=== PATIENT | male | born 1935 | race Caucasian/White ===

== ENCOUNTER → 2016-03-28 | Outpatient (CLI) | payer OTHER, MEDICARE ==
[~2016-03-28] MED LIST: ALBU8I INH; ASPI81TA45 PO; BECL80AE3 INH; LORA10TA PO; LOSA50 PO; TRIA1SPR6 EACH NARE
[2016-03-28 07:43] LABS: HEMATOCRIT 39.5 % (39.0-51.0); MEAN CELL VOLUME 82.1 FL (80.0-100.0); MEAN CORPUSCULAR HEMOGLOBIN 27.6 PG (27.0-34.0); MEAN CORPUSCULAR HGB CONC 33.6 % (32.0-36.0); PLATELET COUNT 208 TH/MM3 (150-450); RED BLOOD COUNT 4.81 MIL/MM3 (4.50-5.90); RED CELL DISTRIBUTION WIDTH 13.7 % (11.6-17.2); REVIEW FLAG FINAL; WHITE BLOOD COUNT 9.5 TH/MM3 (4.0-11.0)
[2016-03-28 08:15] LABS: ALKALINE PHOSPHATASE 89 U/L (45-117); ALT (GPT) 21 U/L (12-78); ANION GAP 9 MEQ/L (5-15); AST (GOT) 17 U/L (15-37); BICARBONATE 27.8 MEQ/L (21.0-32.0); BLOOD UREA NITROGEN 26 MG/DL (7-18); CHLORIDE 107 MEQ/L (98-107); GLOMERULAR FILTRATION RATE 35 ML/MIN (>89); GLUCOSE,FASTING 95 MG/DL (74-99); HDL CHOLESTEROL 44.8 MG/DL (40.0-60.0); LDL CHOLESTEROL 166 MG/DL (0-99); POTASSIUM 4.4 MEQ/L (3.5-5.1); SODIUM (NA) 144 MEQ/L (136-145); TOTAL BILIRUBIN ADULT 0.5 MG/DL (0.2-1.0)
== END ==
LOC: CLAB 07:16
PROVIDERS: ATTEND Family Medicine
DX: E78.5 Hyperlipidemia, unspecified (principal); J45.909 Unspecified asthma, uncomplicated; I12.9 Hypertensive chronic kidney disease with stage 1 through stage 4 chronic kidney disease, or unspecified chronic kidney disease; N18.3 Chronic kidney disease, stage 3 (moderate)
CPT/HCPCS: 36415; 80053; 80061; 84443; 85027

== ENCOUNTER → 2016-07-28 | Outpatient (CLI) | payer OTHER, MEDICARE ==
[2016-07-28 07:41] LABS: HEMATOCRIT 40.8 % (39.0-51.0); MEAN CELL VOLUME 82.4 FL (80.0-100.0); MEAN CORPUSCULAR HEMOGLOBIN 27.1 PG (27.0-34.0); MEAN CORPUSCULAR HGB CONC 32.9 % (32.0-36.0); PLATELET COUNT 180 TH/MM3 (150-450); RED BLOOD COUNT 4.94 MIL/MM3 (4.50-5.90); RED CELL DISTRIBUTION WIDTH 13.6 % (11.6-17.2); REVIEW FLAG FINAL; WHITE BLOOD COUNT 10.3 TH/MM3 (4.0-11.0)
[2016-07-28 08:17] LABS: ANION GAP 6 MEQ/L (5-15); AST (GOT) 14 U/L (15-37); BICARBONATE 27.8 MEQ/L (21.0-32.0); BLOOD UREA NITROGEN 20 MG/DL (7-18); CHLORIDE 109 MEQ/L (98-107); GLOMERULAR FILTRATION RATE 38 ML/MIN (>89); GLUCOSE,FASTING 89 MG/DL (74-99); POTASSIUM 4.3 MEQ/L (3.5-5.1); SODIUM (NA) 143 MEQ/L (136-145)
[2016-07-28 08:28] LABS: ALKALINE PHOSPHATASE 86 U/L (45-117); ALT (GPT) 23 U/L (12-78); HDL CHOLESTEROL 35.2 MG/DL (40.0-60.0); LDL CHOLESTEROL 158 MG/DL (0-99); TOTAL BILIRUBIN ADULT 0.5 MG/DL (0.2-1.0)
== END ==
LOC: CLAB 07:13
PROVIDERS: ATTEND Family Medicine
DX: I12.9 Hypertensive chronic kidney disease with stage 1 through stage 4 chronic kidney disease, or unspecified chronic kidney disease (principal); N18.3 Chronic kidney disease, stage 3 (moderate); J45.909 Unspecified asthma, uncomplicated; E78.5 Hyperlipidemia, unspecified; Z12.5 Encounter for screening for malignant neoplasm of prostate
CPT/HCPCS: 36415; 80053; 80061; 84153; 84443; 85027

== ENCOUNTER → 2016-12-06 | Outpatient (CLI) | payer OTHER, MEDICARE ==
[2016-12-06 08:06] LABS: HEMATOCRIT 40.7 % (39.0-51.0); MEAN CELL VOLUME 84.2 FL (80.0-100.0); MEAN CORPUSCULAR HEMOGLOBIN 27.7 PG (27.0-34.0); MEAN CORPUSCULAR HGB CONC 32.9 % (32.0-36.0); PLATELET COUNT 216 TH/MM3 (150-450); RED BLOOD COUNT 4.84 MIL/MM3 (4.50-5.90); RED CELL DISTRIBUTION WIDTH 13.4 % (11.6-17.2); REVIEW FLAG FINAL; WHITE BLOOD COUNT 10.2 TH/MM3 (4.0-11.0)
[2016-12-06 08:14] LABS: ALT (GPT) 20 U/L (12-78); ANION GAP 5 MEQ/L (5-15); AST (GOT) 16 U/L (15-37); BICARBONATE 28.7 MEQ/L (21.0-32.0); BLOOD UREA NITROGEN 20 MG/DL (7-18); CHLORIDE 109 MEQ/L (98-107); GLOMERULAR FILTRATION RATE 37 ML/MIN (>89); GLUCOSE,FASTING 85 MG/DL (74-99); POTASSIUM 4.5 MEQ/L (3.5-5.1); SODIUM (NA) 143 MEQ/L (136-145)
[2016-12-06 08:24] LABS: ALKALINE PHOSPHATASE 96 U/L (45-117); HDL CHOLESTEROL 38.5 MG/DL (40.0-60.0); LDL CHOLESTEROL 166 MG/DL (0-99); TOTAL BILIRUBIN ADULT 0.5 MG/DL (0.2-1.0)
== END ==
LOC: CLAB 07:24
PROVIDERS: ATTEND Family Medicine
DX: I10 Essential (primary) hypertension (principal); J45.909 Unspecified asthma, uncomplicated; E78.5 Hyperlipidemia, unspecified; N18.3 Chronic kidney disease, stage 3 (moderate)
CPT/HCPCS: 36415; 80053; 80061; 84443; 85027

== ENCOUNTER → 2017-03-27 | Outpatient (CLI) | payer MEDICARE ==
[2017-03-27 09:57] LABS: HEMATOCRIT 39.9 % (39.0-51.0); HEMOGLOBIN 13.5 GM/DL (13.0-17.0); MEAN CELL VOLUME 81.8 FL (80.0-100.0); MEAN CORPUSCULAR HEMOGLOBIN 27.6 PG (27.0-34.0); MEAN CORPUSCULAR HGB CONC 33.8 % (32.0-36.0); MEAN PLATELET VOLUME 8.5 FL (7.0-11.0); PLATELET COUNT 220 TH/MM3 (150-450); RED BLOOD COUNT 4.88 MIL/MM3 (4.50-5.90); RED CELL DISTRIBUTION WIDTH 13.8 % (11.6-17.2); WHITE BLOOD COUNT 8.6 TH/MM3 (4.0-11.0)
[2017-03-27 10:19] LABS: ALBUMIN 3.7 GM/DL (3.4-5.0); AST (GOT) 19 U/L (15-37); BICARBONATE 26.2 MEQ/L (21.0-32.0); BLOOD UREA NITROGEN 21 MG/DL (7-18); CALCIUM 9.1 MG/DL (8.5-10.1); CHLORIDE 108 MEQ/L (98-107); CREATININE 1.86 MG/DL (0.60-1.30); GLOMERULAR FILTRATION RATE 35 ML/MIN (>89); GLUCOSE,FASTING 93 MG/DL (74-99); SODIUM (NA) 140 MEQ/L (136-145)
[2017-03-27 10:20] LABS: ALT (GPT) 23 U/L (12-78); CHOLESTEROL 206 MG/DL (120-200)
[2017-03-27 10:29] LABS: ALKALINE PHOSPHATASE 100 U/L (45-117); CHOLESTEROL/ HDL RATIO 5.91 RATIO; HDL CHOLESTEROL 34.8 MG/DL (40.0-60.0); LDL CHOLESTEROL 141 MG/DL (0-99); TOTAL BILIRUBIN ADULT 0.6 MG/DL (0.2-1.0); TOTAL PROTEIN 7.7 GM/DL (6.4-8.2); TRIGLYCERIDES 150 MG/DL (42-150)
== END ==
LOC: CLAB 09:15
PROVIDERS: ATTEND Family Medicine
DX: I12.9 Hypertensive chronic kidney disease with stage 1 through stage 4 chronic kidney disease, or unspecified chronic kidney disease (principal); N18.3 Chronic kidney disease, stage 3 (moderate); J45.909 Unspecified asthma, uncomplicated; E78.5 Hyperlipidemia, unspecified; Z12.5 Encounter for screening for malignant neoplasm of prostate
CPT/HCPCS: 36415; 80053; 80061; 84153; 84443; 85027

== ENCOUNTER → 2017-08-08 | Outpatient (CLI) | payer MEDICARE ==
[2017-08-08 09:40] LABS: AUTOMATED NEUTROPHIL # 3.2 TH/MM3 (1.8-7.7); BASOPHIL % 0.6 % (0.0-2.0); EOSINOPHIL # 0.6 TH/MM3 (0-0.4); EOSINOPHIL % 6.9 % (0.0-4.0); HEMATOCRIT 39.2 % (39.0-51.0); HEMOGLOBIN 12.8 GM/DL (13.0-17.0); LYMPH % 47.3 % (9.0-44.0); LYMPHOCYTE # 4.1 TH/MM3 (1.0-4.8); MEAN CELL VOLUME 83.4 FL (80.0-100.0); MEAN CORPUSCULAR HEMOGLOBIN 27.3 PG (27.0-34.0); MEAN CORPUSCULAR HGB CONC 32.7 % (32.0-36.0); MEAN PLATELET VOLUME 8.5 FL (7.0-11.0); MONO % 8.2 % (0.0-8.0); MONOCYTE # 0.7 TH/MM3 (0-0.9); PLATELET COUNT 203 TH/MM3 (150-450); RED CELL DISTRIBUTION WIDTH 13.6 % (11.6-17.2); WHITE BLOOD COUNT 8.7 TH/MM3 (4.0-11.0)
[2017-08-08 10:05] LABS: ALBUMIN 3.7 GM/DL (3.4-5.0); AST (GOT) 22 U/L (15-37); BICARBONATE 20.9 MEQ/L (21.0-32.0); BLOOD UREA NITROGEN 27 MG/DL (7-18); CALCIUM 8.6 MG/DL (8.5-10.1); CHLORIDE 114 MEQ/L (98-107); CREATININE 1.89 MG/DL (0.60-1.30); GLOMERULAR FILTRATION RATE 34 ML/MIN (>89); GLUCOSE,FASTING 86 MG/DL (74-99); SODIUM (NA) 144 MEQ/L (136-145)
[2017-08-08 10:06] LABS: ALT (GPT) 23 U/L (12-78); CHOLESTEROL 163 MG/DL (120-200)
[2017-08-08 10:16] LABS: ALKALINE PHOSPHATASE 101 U/L (45-117); HDL CHOLESTEROL 37.9 MG/DL (40.0-60.0); LDL CHOLESTEROL 105 MG/DL (0-99); TOTAL BILIRUBIN ADULT 0.5 MG/DL (0.2-1.0); TOTAL PROTEIN 7.3 GM/DL (6.4-8.2); TRIGLYCERIDES 101 MG/DL (42-150)
== END ==
LOC: CLAB 09:21
PROVIDERS: ATTEND Family Medicine
DX: I12.9 Hypertensive chronic kidney disease with stage 1 through stage 4 chronic kidney disease, or unspecified chronic kidney disease (principal); N18.3 Chronic kidney disease, stage 3 (moderate); E78.5 Hyperlipidemia, unspecified
CPT/HCPCS: 36415; 80053; 80061; 84443; 85025

== ENCOUNTER 2018-02-22 09:47 | Observation (INO) ==
[2018-02-22] MEDS ORDERED: Sod Chloride 0.9% Inj 1,000 ML IV.SIG ONE (10:22)
[2018-02-22] MEDS ORDERED: Morphine Inj 4 MG/ML Vial IV.PUSH ONE (10:22)
[2018-02-22] MEDS ORDERED: Sodium Chlor 0.9% Inj 500 ML IV.SIG ONE (10:23)
[2018-02-22 10:59] LABS: Baso % (Auto) 0.5 % (0.0-2.0); Eos # (Auto) 0.2 th/mm3 (0.0-0.4); Eos % (Auto) 1.9 % (0.0-4.0); Hemoglobin 13.6 gm/dL (13.0-17.0); Lymph # (Auto) 3.2 th/mm3 (1.0-4.8); Lymph % (Auto) 39.1 % (9.0-44.0); Mean Corpuscular HGB Conc 34.8 % (32.0-36.0); Mean Corpuscular Hemoglobin 28.6 pg (27.0-34.0); Mean Corpuscular Volume 82.2 fL (80.0-100.0); Mean Platelet Volume 9.3 fL (7.0-11.0); Mono # (Auto) 0.8 th/mm3 (0.0-0.9); Mono % (Auto) 9.6 % (0.0-8.0); Neut % (Auto) 48.9 % (16.0-70.0); Platelet Count 218 th/mm3 (150-450); Red Blood Count 4.74 mil/mm3 (4.50-5.90); Red Cell Distribution Width 13.7 % (11.6-17.2); White Blood Count 8.3 th/mm3 (4.0-11.0)
--- NOTE | 2018-02-22 11:04 | ED ---
HPI General Chief complaint: Abdominal Pain Stated complaint: Back/Stomach/Neck Pain Complaint Time Seen by Provider: 02/22/18 10:12 Source: patient, RN notes reviewed and old records reviewed Mode of arrival: ambulatory History of Present Illness HPI narrative: 82yM presenting with abdominal pain. The patient has been having RUQ abdominal pain for the past several weeks, was sent for a CT abd/ pelvis at [facility] [place] and was found to have cholelithiasis. He was then sent for a HIDA scan on 02/19 (also at [facility]) but was unable to complete the study due to pain. He was supposed to see his GI doctor today but was unable to tolerate pain so he came to the ED. Admits to nausea, decreased PO intake, and unintentional weight loss. Denies fever, chest pain, vomiting, diarrhea, or dysuria. GI is Dr. Colvin. Related Data Home Medications Medication Instructions Recorded Confirmed albuterol sulfate [ProAir HFA] 1 puff INHALATION Q4-6H PRN 02/22/18 02/22/18 amlodipine 5 mg PO DAILY 02/22/18 02/22/18 losartan 50 mg PO DAILY 02/22/18 02/22/18 Allergies Allergy/AdvReac Type Severity Reaction Status Date / Time No Known Allergies Allergy Verified 02/22/18 10:07 Review of Systems ROS: all other systems reviewed are negative Constitutional Denies fever(s) Cardiovascular Denies chest pain Respiratory Denies cough Gastrointestinal Reports nausea Genitourinary Denies dysuria Musculoskeletal Comments: (+) right flank pain Neurologic Denies confusion Psychiatric Denies confusion [facility] Medical History Medical History Asthma (Acute) Cholecystitis (Acute) HTN (hypertension) (Acute) Social History Social History Substance History: No History of Abuse Smoking Status: Never smoker How Often Do You Have a Drink Containing Alcohol: Never Recent Travel in [facility] within the Last 8 Weeks: No Recent Out of Country Travel within the Last 8 Weeks: No Immunization History Tetanus Immunization: Unsure Exam Const Other: Appears uncomfortable HENMT Face and sinus: normal facial exam Eyes General: appearance normal, both eyes and all related structures Chest Chest: normal inspection of the chest Resp Effort & Inspection: normal respiratory effort Auscultation: no rhonchi and no wheezes Cardio Rate: regular rate Rhythm: regular rhythm GI Other: Soft, mild RUQ tenderness, negative Rodarte's sign, no CVA tenderness, no guarding or rebound, non-distended Skin General: no rashes or lesions noted Neuro General: alert and awake Psych Affect: normal affect Course Consultations Consultation #1: Patient found to have dehydration in the setting of chronic kidney disease, inability to tolerate PO, and intractable pain. I spoke with Dr. Noguera of general surgery, who agrees that patient will need his gallbladder removed non-emergently (urgently, tomorrow AM). He will see the patient this evening. Time: 12:07 Initial Documented Vital Signs Temperature 97.4 F L 02/22/18 09:56 Pulse Rate 75 02/22/18 09:56 Respiratory Rate 17 02/22/18 09:56 Blood Pressure 138/75 02/22/18 09:56 Pulse Oximetry 96 02/22/18 09:56 Last Documented Vital Signs Temperature 97.4 F L 02/22/18 09:56 Pulse Rate 75 02/22/18 09:56 Respiratory Rate 17 02/22/18 09:56 Blood Pressure 138/75 02/22/18 09:56 Pulse Oximetry 96 02/22/18 09:56 Medical Decision Making [facility] Narrative Medical decision making narrative: Assessment: 82yM presenting with abdominal pain Plan: Pain control, IV fluids Labs RUQ US Addendum: Patient requires cholecystectomy tomorrow, IV hydration overnight, re- evaluation of labs in AM. Case discussed with Dr. Ramsey of [facility]. Patient and his understand and agree with plan. Medical Screen Exam Complete: Yes Emergency Medical Condition: Yes Differential Diagnosis Differential Diagnosis: Differential diagnosis includes, but is not limited to: cholelithiasis, choledocholithiasis, cholangitis, pancreatitis Medical Records Medical records reviewed: Yes I reviewed the patient's medical records. Lab Data Lab results reviewed: Yes I reviewed the patient's lab results. Result diagrams: 02/22/18 10:50 02/22/18 10:50 Lab Results 02/22/18 02/22/18 02/22/18 Range/Units 10:50 10:50 10:50 WBC 8.3 (4.0-11.0) th/mm3 RBC 4.74 (4.50-5.90) mil/mm3 Hgb 13.6 (13.0-17.0) gm/dL Hct 39.0 (39.0-51.0) % MCV 82.2 (80.0-100.0) fL MCH 28.6 (27.0-34.0) pg MCHC 34.8 (32.0-36.0) % RDW 13.7 (11.6-17.2) % Plt Count 218 (150-450) th/mm3 MPV 9.3 (7.0-11.0) fL Neut % (Auto) 48.9 (16.0-70.0) % Lymph % (Auto) 39.1 (9.0-44.0) % Graves % (Auto) 9.6 H (0.0-8.0) % Eos % (Auto) 1.9 (0.0-4.0) % Baso % (Auto) 0.5 (0.0-2.0) % Neut # (Auto) 4.0 (1.8-7.7) th/mm3 Lymph # (Auto) 3.2 (1.0-4.8) th/mm3 Graves # (Auto) 0.8 (0.0-0.9) th/mm3 Eos # (Auto) 0.2 (0.0-0.4) th/mm3 Baso # (Auto) 0.0 (0.0-0.2) th/mm3 WBC Differential . Differential Comment Auto diff final Sodium 129 L (136-145) meq/L Potassium 4.1 (3.5-5.1) meq/L Chloride 96 L (98-107) meq/L Carbon Dioxide 24.6 (21.0-32.0) meq/L Anion Gap 8 (5-15) meq/L BUN 13 (7-18) mg/dL Creatinine 1.49 H (0.60-1.30) mg/dL Estimated GFR 45 L (>89) mL/min Random Glucose 102 (74-106) mg/dL Calcium 8.6 (8.5-10.1) mg/dL Magnesium 2.1 (1.5-2.5) mg/dL Total Bilirubin 1.0 (0.2-1.0) mg/dL AST 23 (15-37) U/L ALT 27 (12-78) U/L Alkaline Phosphatase 94 (45-117) U/L Total Protein 7.3 (6.4-8.2) g/dL Albumin 3.8 (3.4-5.0) g/dL Lipase 116 (73-393) U/L Blood Type O Positive Blood Type Recheck Required Antibody Screen Negative Imaging Data Radiologist's impression: Gallbladder Ultrasound 02/22/18 10:22 CONCLUSION: 1. The gallbladder is contracted containing multiple stones. However, there are no findings to suggest gallbladder obstruction or inflammation. 2. Remainder of the examination demonstrates no definite abnormality. Discharge Plan Discharge Disposition Patient Disposition: ED Admit(ED Internal Use Only) Discharge Condition Condition: Stable Discharge Order Discharge Orders: ED Use Only Admit Order (Routine); Ordered 02/22/18 Ordered By: Betsy Christie Discharge Details Diagnosis: Acute dehydration, Acute hyponatremia, Cholelithiasis Physicians Team ED Provider: Betsy Christie Primary Care Provider: Issa Navarrete Attending Provider: Yomaira Ramsey Other Providers: Tolu Noguera Status ED Status: Admitted Patient
[2018-02-22 11:15] LABS: Alanine Aminotransferase 27 U/L (12-78); Albumin 3.8 g/dL (3.4-5.0); Anion Gap 8 meq/L (5-15); Aspartate Aminotransferase 23 U/L (15-37); Blood Urea Nitrogen 13 mg/dL (7-18); Calcium 8.6 mg/dL (8.5-10.1); Carbon Dioxide 24.6 meq/L (21.0-32.0); Chloride 96 meq/L (98-107); Glomerular Filtration Rate 45 mL/min (>89); Glucose,Random 102 mg/dL (74-106); Lipase 116 U/L (73-393); Magnesium 2.1 mg/dL (1.5-2.5); Potassium 4.1 meq/L (3.5-5.1); Sodium 129 meq/L (136-145)
[2018-02-22 11:17] LABS: Alkaline Phosphatase 94 U/L (45-117); Total Protein 7.3 g/dL (6.4-8.2)
--- NOTE | 2018-02-22 11:22 | US ---
EXAM DATE: 02/22/2018 11:17 AM EST AGE/SEX: 82 years / Male INDICATIONS: Right upper quadrant abdominal pain. CLINICAL DATA: This is the patient's initial encounter. Patient reports that signs and symptoms have been present for 2 months and indicates a pain score of 9/10. MEDICAL/SURGICAL HISTORY: Asthma. Hypertension. Cholecystitis. . COMPARISON: POI, CT ABDOMEN AND PELVIS W/O CONTRAST, 02/12/2018. . MEASUREMENTS: Liver:__ 14.7 cm. Common Bile Duct:__ 3mm. FINDINGS: Liver: Normal echogenicity without a focal lesion. There is no bile duct dilatation. Portal Vein: Hepatopedal flow seen in portal vein. Common Duct: No intraluminal mass or stone visualized. Gallbladder: Gallbladder is contracted containing innumerable stones. No pericholecystic fluid is pr esent and sonographic Rodarte sign is negative. Pancreas: No definite pancreas abnormality is identified. Right Kidney: Normal echogenicity and cortical thickness. No mass or hydronephrosis. Other: None. CONCLUSION: 1. The gallbladder is contracted containing multiple stones. However, there are no findings to sugge st gallbladder obstruction or inflammation. 2. Remainder of the examination demonstrates no definite abnormality. Electronically signed by: Brendan Reynolds MD Board Certified Radiologist 02/22/2018 11:21 AM EST
[2018-02-22] MEDS ORDERED: Bisacodyl 10 MG Supp RECTAL PRN (11:59)
[2018-02-22] MEDS ORDERED: Acetaminophen 325 MG Tablet PO PRN (11:59)
--- NOTE | 2018-02-22 12:57 | P.HPIM ---
History of Present Illness Service: Hospitalist Primary Care Physician: Issa Navarrete MD Chief Complaint: Right sided abdominal pain. History of Present Illness: Mr. Richmond is a pleasant 82-year-old male with a history of hypertension who presents to the emergency department on 02/22/2018 due to right-sided abdominal pain. In November 2017, patient was driving back to [place] from [place] when he started noticing right-sided abdominal pain. Over the following months, his abdominal pain Getting worse and also associated with food intake. He did not have any fever or chills. However, due to abdominal pain when he eats, he has lost 10 lbs or so. He denies any chest pain , shortness of breath, fever or chills. He denies any changes in bowel or bladder habits. Past medical history: Chronic kidney disease stage III, hypertension Past surgical history: Mastoid surgery when he was 6 years old. Nasal polyp surgery. Social history: Lifelong non-smoker and nondrinker. Family history: Mother had dementia. Inpatient Certification Inpatient Certification: I certify that the inpatient services were ordered in accordance with Medicare regulations governing the order. This includes certification that hospital inpatient services are reasonable and necessary and in the case of services not specified as inpatient-only under 42 CFR 419.22(n), that they are appropriately provided as inpatient services in accordance to with the 2-midnight benchmark under 43 CFR 412.3(e) Review of Systems Review of Systems: all other systems reviewed are negative [facility] Medical History Medical History Asthma (Acute) Cholecystitis (Acute) HTN (hypertension) (Acute) Social History Social History Substance History: No History of Abuse Smoking Status: Never smoker How Often Do You Have a Drink Containing Alcohol: Never Recent Travel in [place] within the Last 8 Weeks: No Recent Out of Country Travel within the Last 8 Weeks: No Immunization History Tetanus Immunization: Unsure Medications and Allergies Allergies Allergy/AdvReac Type Severity Reaction Status Date / Time No Known Allergies Allergy Verified 02/22/18 10:07 Home Medications Medication Instructions Recorded Confirmed Type albuterol sulfate [ProAir HFA] 1 puff INHALATION Q4-6H PRN 02/22/18 02/22/18 History amlodipine 5 mg PO DAILY 02/22/18 02/22/18 History losartan 50 mg PO DAILY 02/22/18 02/22/18 History Active Medications: Active Medications Acetaminophen (Tylenol) 650 mg PO Q4H PRN PRN Reason: Headache, fever, pain 1-4 Al Hydroxide/Mg Hydroxide (Milk Of Magnesia Liq) 30 ml PO Q12H PRN PRN Reason: Mild Constipation Amlodipine Besylate (Norvasc) 5 mg PO DAILY ANA Bisacodyl (Dulcolax Supp) 10 mg RECTAL DAILY PRN PRN Reason: SEVERE CONSITIPATION Ceftriaxone Sodium 2,000 mg/ (Sodium Chloride) 100 mls @ 200 mls/hr IV.SIG Q24H ANA Lactulose (Lactulose Liq) 30 ml PO DAILY PRN PRN Reason: SEVERE CONSITIPATION Losartan Potassium (Cozaar) 50 mg PO DAILY ANA Morphine Sulfate (Morphine Inj) 2 mg IV.PUSH Q4H PRN PRN Reason: pain 5-10 Ondansetron HCl (Zofran Inj) 4 mg IV.PUSH Q6H PRN PRN Reason: NAUSEA OR VOMITING Sennosides (Senokot) 17.2 mg PO Q12H PRN PRN Reason: Moderate Constipation Sodium Chloride (Ns Flush) 2 ml IV.FLUSH BID ANA Sodium Chloride (Ns Flush) 2 ml IV.FLUSH UNSCH PRN PRN Reason: FLUSH AFTER USING IV ACCESS Physical Exam Vital signs: Last Vital Signs Temp 97.4 F L 02/22/18 09:56 Pulse 75 02/22/18 09:56 Resp 17 02/22/18 09:56 BP 138/75 02/22/18 09:56 Pulse Ox 96 02/22/18 09:56 Intake & Output 02/20/18 02/21/18 02/22/18 02/23/18 06:59 06:59 06:59 06:59 Intake Total 1500 / 1500 Balance 1500 / 1500 Weight 74.389 kg Narrative: GENERAL: This is a well-nourished, well-developed patient, in no apparent distress. SKIN: No rashes, ecchymoses or lesions. Warm and dry. HEAD: Atraumatic. Normocephalic. No temporal or scalp tenderness. EYES: Pupils equal round and reactive. No injection or drainage. ENT: Nose without bleeding, purulent drainage or septal hematoma. Airway patent. NECK: Trachea midline. No lymphadenopathy. Supple, nontender, no meningeal signs. CARDIOVASCULAR: Regular rate and rhythm without murmurs, gallops, or rubs. No JVD. RESPIRATORY: Clear to auscultation. Breath sounds equal bilaterally. No wheezes , rales, or rhonchi. GASTROINTESTINAL: Abdomen soft, non-tender, nondistended. No guarding. MUSCULOSKELETAL: Extremities without clubbing, cyanosis, or edema. NEUROLOGICAL: Awake and alert. Cranial nerves II through XII intact. No focal neurological deficits. Normal speech. Results Labs CBC & Chem 7: 02/22/18 10:50 02/22/18 10:50 Imaging Impressions Gallbladder Ultrasound 02/22/18 10:22 CONCLUSION: 1. The gallbladder is contracted containing multiple stones. However, there are no findings to suggest gallbladder obstruction or inflammation. 2. Remainder of the examination demonstrates no definite abnormality. Caprini VTE Risk Assessment Caprini VTE Risk Assessment: No/Low Risk (score <= 1) Caprini Risk Assessment Model: Point Value = 1 Point Value = 2 Point Value = 3 Point Value = 5 Age 41-60 Minor surgery BMI > 25 kg/m2 Swollen legs Varicose veins or History of unexplained or recurrent spontaneous Oral contraceptives or hormone replacement Sepsis (< 1 month) Serious lung disease, including pneumonia (< 1 month) Abnormal pulmonary function Acute myocardial infarction Congestive heart failure (< 1 month) History of inflammatory bowel disease Medical patient at bed rest Age 61-74 Arthroscopic surgery Major open surgery (> 45 min) Laparoscopic surgery (> 45 min) Malignancy Confined to bed (> 72 hours) Immobilizing plaster cast Central venous access Age >= 75 History of VTE Family history of VTE Factor V Leiden Prothrombin 20331C Lupus anticoagulant Anticardiolipin antibodies Elevated serum homocysteine Heparin-induced thrombocytopenia Other congenital or acquired thrombophilia Stroke (< 1 month) Elective arthroplasty Hip, pelvis, or leg fracture Acute spinal cord injury (< 1 month) Prophylaxis Regimen: Total Risk Factor Score Risk Level Prophylaxis Regimen 0-1 Low Early ambulation 2 Moderate Order ONE of the following: *Sequential Compression Device (SCD) *Heparin 5000 units SQ BID 3-4 Higher Order ONE of the following medications: *Heparin 5000 units SQ TID *Enoxaparin/Lovenox 40 mg SQ daily (WT < 150 kg, CrCl > 30 mL/min) *Enoxaparin/Lovenox 30 mg SQ daily (WT < 150 kg, CrCl > 10-29 mL/min) *Enoxaparin/Lovenox 30 mg SQ BID (WT < 150 kg, CrCl > 30 mL/min) AND/OR *Sequential Compression Device (SCD) 5 or more Highest Order ONE of the following medications: *Heparin 5000 units SQ TID (Preferred with Epidurals) *Enoxaparin/Lovenox 40 mg SQ daily (WT < 150 kg, CrCl > 30 mL/min) *Enoxaparin/Lovenox 30 mg SQ daily (WT < 150 kg, CrCl > 10-29 mL/min) *Enoxaparin/Lovenox 30 mg SQ BID (WT < 150 kg, CrCl > 30 mL/min) AND *Sequential Compression Device (SCD) Assessment and Plan Plan Mr. Richmond is a pleasant 82-year-old male with a history of hypertension, CKD stage III who presents to the emergency department on 02/22/2018 due to abdominal pain that started in November 2017. His abdominal pain is worse with eating. Imaging studies indicate gallbladder stones. Patient did try to undergo HIDA scan in the outpatient setting but could not tolerate due to pain. Acute symptomatic cholecystitis General surgery consulted. Likely surgery in the morning on 02/23/2018. Acetaminophen, morphine IV for pain management. Continue ceftriaxone 2 g every 24 hours. No antibiotics after surgery. Clear liquid diet for now and n.p.o. midnight. Hypertension Continue amlodipine as well as losartan. CKD stage III Creatinine 1.49 today which is somewhat better than his baseline. Estimated GFR 45. Full code. SCDs. Discharge plan: After surgery, patient likely can be discharged home on 2018 if cleared by surgery.
[2018-02-22 13:13] LABS: Bilirubin,Urine Negative (Negative); Clarity,Urine Clear (Clear); Color,Urine Yellow (Yellw/Straw); Glucose,Urine (UA) Negative (Negative); Leukocyte Esterase,Urine Negative (Negative); Nitrite,Urine Negative (Negative); Specific Gravity,Urine 1.006 (1.002-1.035)
--- NOTE | 2018-02-22 14:42 | P.CONGS ---
[facility] Gen Surgery Consult Note Consult date: 02/22/18 Reason for consult: gallstones Requesting physician: Betsy Christie Narrative: This is an 82 year old male with a past medical history of hypertension and stage 3 kidney disease. He reports epigastric and RIGHT upper quadrant pain that radiates to his back and up to his RIGHT shoulder. He reports he has lost about 20 pounds in the last 2 months. In December, he was seen Dr. Colvin's office by the PA who ordered a CT abdomen/pelvis which showed cholelithiasis. He was referred to our office and seen by Dr. Clayton Marquez. A HIDA scan was ordered but he was unable to complete the test due to chronic back pain. His RIGHT upper quadrant pain continues and he arrived to the ED for evaluation. An US of the gallbladder was done which shows cholelithiasis without any inflammatory changes. His WBC is normal. His LFTs are normal. A General Surgery consultation has been requested. Review of Systems All other systems reviewed negative except as stated in [facility] - History History Provided By: Patient - Medical History Medical History: Medical History (Last Updated 02/22/18 @ 14:38 by GEMINI Knutson) Asthma Cholecystitis HTN (hypertension) Nasal polyp Stage 3 chronic kidney disease - Surgical History Surgical History: Surgical History (Last Updated 02/22/18 @ 14:38 by GEMINI Knutson) Hx of tonsillectomy - Tobacco History Smoking Status: Never smoker - Alcohol History How Often Do You Have a Drink Containing Alcohol: Never - Substance Use History Substance History: No History of Abuse - Travel History Recent Travel in the [place] Within the Last 8 Weeks: No Recent Travel Out of the Country Within the Last 8 Weeks: No - Immunization History Tetanus Immunization: Unsure Medications and Allergies Allergies Allergy/AdvReac Type Severity Reaction Status Date / Time No Known Allergies Allergy Verified 02/22/18 10:07 Home Medications Medication Instructions Recorded Confirmed Type albuterol sulfate [ProAir HFA] 1 puff INHALATION Q4-6H PRN 02/22/18 02/22/18 History amlodipine 5 mg PO DAILY 02/22/18 02/22/18 History losartan 50 mg PO DAILY 02/22/18 02/22/18 History Active Medications: Active Medications Acetaminophen (Tylenol) 650 mg PO Q4H PRN PRN Reason: Headache, fever, pain 1-4 Al Hydroxide/Mg Hydroxide (Milk Of Magnesia Liq) 30 ml PO Q12H PRN PRN Reason: Mild Constipation Amlodipine Besylate (Norvasc) 5 mg PO DAILY [facility] Bisacodyl (Dulcolax Supp) 10 mg RECTAL DAILY PRN PRN Reason: SEVERE CONSITIPATION Ceftriaxone Sodium 2,000 mg/ (Sodium Chloride) 100 mls @ 200 mls/hr IV.SIG Q24H ANA Last Infusion: 02/22/18 14:08 Dose: Infused Lactulose (Lactulose Liq) 30 ml PO DAILY PRN PRN Reason: SEVERE CONSITIPATION Losartan Potassium (Cozaar) 50 mg PO DAILY [facility] Morphine Sulfate (Morphine Inj) 2 mg IV.PUSH Q4H PRN PRN Reason: pain 5-10 Ondansetron HCl (Zofran Inj) 4 mg IV.PUSH Q6H PRN PRN Reason: NAUSEA OR VOMITING Sennosides (Senokot) 17.2 mg PO Q12H PRN PRN Reason: Moderate Constipation Sodium Chloride (Ns Flush) 2 ml IV.FLUSH BID [facility] Sodium Chloride (Ns Flush) 2 ml IV.FLUSH UNSCH PRN PRN Reason: FLUSH AFTER USING IV ACCESS Exam Vital signs: Laboratory Results WBC 8.3 th/mm3 (4.0-11.0) 02/22/18 10:50 RBC 4.74 mil/mm3 (4.50-5.90) 02/22/18 10:50 Hgb 13.6 gm/dL (13.0-17.0) 02/22/18 10:50 Hct 39.0 % (39.0-51.0) 02/22/18 10:50 MCV 82.2 fL (80.0-100.0) 02/22/18 10:50 MCH 28.6 pg (27.0-34.0) 02/22/18 10:50 MCHC 34.8 % (32.0-36.0) 02/22/18 10:50 RDW 13.7 % (11.6-17.2) 02/22/18 10:50 Plt Count 218 th/mm3 (150-450) 02/22/18 10:50 MPV 9.3 fL (7.0-11.0) 02/22/18 10:50 Neut % (Auto) 48.9 % (16.0-70.0) 02/22/18 10:50 Lymph % (Auto) 39.1 % (9.0-44.0) 02/22/18 10:50 [place] % (Auto) 9.6 % (0.0-8.0) H 02/22/18 10:50 Eos % (Auto) 1.9 % (0.0-4.0) 02/22/18 10:50 Baso % (Auto) 0.5 % (0.0-2.0) 02/22/18 10:50 Neut # (Auto) 4.0 th/mm3 (1.8-7.7) 02/22/18 10:50 Lymph # (Auto) 3.2 th/mm3 (1.0-4.8) 02/22/18 10:50 [place] # (Auto) 0.8 th/mm3 (0.0-0.9) 02/22/18 10:50 Eos # (Auto) 0.2 th/mm3 (0.0-0.4) 02/22/18 10:50 Baso # (Auto) 0.0 th/mm3 (0.0-0.2) 02/22/18 10:50 WBC Differential . 02/22/18 10:50 Differential Comment Auto diff final 02/22/18 10:50 Sodium 129 meq/L (136-145) L 02/22/18 10:50 Potassium 4.1 meq/L (3.5-5.1) 02/22/18 10:50 Chloride 96 meq/L (98-107) L 02/22/18 10:50 Carbon Dioxide 24.6 meq/L (21.0-32.0) 02/22/18 10:50 Anion Gap 8 meq/L (5-15) 02/22/18 10:50 BUN 13 mg/dL (7-18) 02/22/18 10:50 Creatinine 1.49 mg/dL (0.60-1.30) H 02/22/18 10:50 Estimated GFR 45 mL/min (>89) L 02/22/18 10:50 Random Glucose 102 mg/dL (74-106) 02/22/18 10:50 Calcium 8.6 mg/dL (8.5-10.1) 02/22/18 10:50 Magnesium 2.1 mg/dL (1.5-2.5) 02/22/18 10:50 Total Bilirubin 1.0 mg/dL (0.2-1.0) 02/22/18 10:50 AST 23 U/L (15-37) 02/22/18 10:50 ALT 27 U/L (12-78) 02/22/18 10:50 Alkaline Phosphatase 94 U/L (45-117) 02/22/18 10:50 Total Protein 7.3 g/dL (6.4-8.2) 02/22/18 10:50 Albumin 3.8 g/dL (3.4-5.0) 02/22/18 10:50 Lipase 116 U/L (73-393) 02/22/18 10:50 Urine Color Yellow (Yellw/Straw) 02/22/18 12:19 Urine Clarity Clear (Clear) 02/22/18 12:19 Urine pH 6.0 (5.0-8.5) 02/22/18 12:19 Ur Specific [place] 1.006 (1.002-1.035) 02/22/18 12:19 Urine Protein Negative mg/dL (Neg-Trace) 02/22/18 12:19 Urine Glucose (UA) Negative mg/dL (Negative) 02/22/18 12:19 Urine Ketones Trace mg/dL (Negative) H 02/22/18 12:19 Urine Occult Blood Negative (Negative) 02/22/18 12:19 Urine Nitrate Negative (Negative) 02/22/18 12:19 Urine Bilirubin Negative (Negative) 02/22/18 12:19 Urine Urobilinogen Less than 2 mg/dL (Less than 2) 02/22/18 12:19 Ur Leukocyte Esterase Negative (Negative) 02/22/18 12:19 Urine RBC Less than 1 /hpf (0-3) 02/22/18 12:19 Urine WBC 1 /hpf (0-5) 02/22/18 12:19 Micro UA Comment Culture not ind 02/22/18 12:19 Ur Microscopic Review Not Reportable 02/22/18 12:19 Urine Culture Comments Culture not ind 02/22/18 12:19 Blood Type O Positive 02/22/18 10:50 Blood Type Recheck Required 02/22/18 10:50 Antibody Screen Negative 02/22/18 10:50 Impressions Gallbladder Ultrasound 02/22/18 10:22 CONCLUSION: 1. The gallbladder is contracted containing multiple stones. However, there are no findings to suggest gallbladder obstruction or inflammation. 2. Remainder of the examination demonstrates no definite abnormality. Narrative: GENERAL: Very pleasant 82 year old male resting in bed in no acute distress. SKIN: Warm and dry. HEAD: Atraumatic. Normocephalic. EYES: Pupils equal and round. No scleral icterus. No injection or drainage. ENT: No nasal bleeding or discharge. Mucous membranes pink and moist. NECK: Trachea midline. CARDIOVASCULAR: Regular rate and rhythm. RESPIRATORY: No accessory muscle use. Clear to auscultation. GASTROINTESTINAL: Abdomen soft, nondistended. Epigastric and RUQ tenderness with palpation. No visible scars or hernias. MUSCULOSKELETAL: Extremities without clubbing, cyanosis, or edema. No obvious deformities. NEUROLOGICAL: Awake and alert. No obvious cranial nerve deficits. Motor grossly within normal limits. Five out of 5 muscle strength in the arms and legs. Normal speech. PSYCHIATRIC: Appropriate mood and affect; insight and judgment normal. - Routine Abdominal Exam Present: soft Comments: Nontender, no masses appreciated Results - Labs 02/22/18 10:50 02/22/18 10:50 Laboratory Results - last 24 hr 02/22/18 02/22/18 02/22/18 10:50 10:50 10:50 WBC 8.3 RBC 4.74 Hgb 13.6 Hct 39.0 MCV 82.2 MCH 28.6 MCHC 34.8 RDW 13.7 Plt Count 218 MPV 9.3 Neut % (Auto) 48.9 Lymph % (Auto) 39.1 [place] % (Auto) 9.6 H Eos % (Auto) 1.9 Baso % (Auto) 0.5 Neut # (Auto) 4.0 Lymph # (Auto) 3.2 [place] # (Auto) 0.8 Eos # (Auto) 0.2 Baso # (Auto) 0.0 WBC Differential . Differential Comment Auto diff final Sodium 129 L Potassium 4.1 Chloride 96 L Carbon Dioxide 24.6 Anion Gap 8 BUN 13 Creatinine 1.49 H Estimated GFR 45 L Random Glucose 102 Calcium 8.6 Magnesium 2.1 Total Bilirubin 1.0 AST 23 ALT 27 Alkaline Phosphatase 94 Total Protein 7.3 Albumin 3.8 Lipase 116 Urine Color Urine Clarity Urine pH Ur Specific [place] Urine Protein Urine Glucose (UA) Urine Ketones Urine Occult Blood Urine Nitrate Urine Bilirubin Urine Urobilinogen Ur Leukocyte Esterase Urine RBC Urine WBC Micro UA Comment Ur Microscopic Review Urine Culture Comments Blood Type O Positive Blood Type Recheck Required Antibody Screen Negative 02/22/18 12:19 WBC RBC Hgb Hct MCV MCH MCHC RDW Plt Count MPV Neut % (Auto) Lymph % (Auto) [place] % (Auto) Eos % (Auto) Baso % (Auto) Neut # (Auto) Lymph # (Auto) [place] # (Auto) Eos # (Auto) Baso # (Auto) WBC Differential Differential Comment Sodium Potassium Chloride Carbon Dioxide Anion Gap BUN Creatinine Estimated GFR Random Glucose Calcium Magnesium Total Bilirubin AST ALT Alkaline Phosphatase Total Protein Albumin Lipase Urine Color Yellow Urine Clarity Clear Urine pH 6.0 Ur Specific [place] 1.006 Urine Protein Negative Urine Glucose (UA) Negative Urine Ketones Trace H Urine Occult Blood Negative Urine Nitrate Negative Urine Bilirubin Negative Urine Urobilinogen Less than 2 Ur Leukocyte Esterase Negative Urine RBC Less than 1 Urine WBC 1 Micro UA Comment Culture not ind Ur Microscopic Review Not Reportable Urine Culture Comments Culture not ind Blood Type Blood Type Recheck Antibody Screen - Imaging Imaging: ITS Impressions Gallbladder Ultrasound 02/22/18 10:22 CONCLUSION: 1. The gallbladder is contracted containing multiple stones. However, there are no findings to suggest gallbladder obstruction or inflammation. 2. Remainder of the examination demonstrates no definite abnormality. US - abdomen: report reviewed, image reviewed Assessment and Plan - Assessment (1) Symptomatic cholelithiasis Code(s): K80.20 - Calculus of gallbladder without cholecystitis without obstruction Status: Acute Plan: 82 year old male with symptomatic cholelithiasis -Will plan for laparoscopic cholecystectomy tomorrow -Discussed procedure including risks and benefits -Obtain consents -Clear liquids tonight; NPO after MN -IVF; Na 129 -Repeat labs tomorrow -Thank you for this consult; We will continue to follow I am concerned about his weight loss and the gallbladder stones do not really explain that. I have discussed that with the patient and his who was present at the bedside. Risks were discussed with the patient and his including but not limited to : Bleeding, infection, bile duct injury, bowel injury, possible need for postoperative endoscopy, drainage, or reoperation. I discussed remedies, consequences, alternatives, and convalescence; they vocalized understanding and agreed to proceed. The exam, history, and the medical decision-making described in the above note were completed with the assistance of the mid-level provider. I reviewed and agree with the findings presented. I attest that I had a [id number] encounter with the patient on the same day, and personally performed and documented my assessment and findings in the medical record. - Plan Code Status: Dr. Chuckie Sanchez and Mrs. Richmond
[2018-02-22] MEDS: Morphine Inj 4 MG/ML Vial IV.PUSH PRN ×2 (17:36→21:59)
[2018-02-22] MEDS: Sod Chloride 0.9% Inj 1,000 ML IV.CONT SCH (22:58)
[2018-02-23] MEDS ORDERED: Chlorhexidine Gluconate 2% 1 Pack (2 Cloths) TOPICAL ONE (02:29)
[2018-02-23] MEDS: amLODIPine 5 MG Tablet PO SCH (08:47)
[2018-02-23] MEDS: Sod Chloride 0.9% Inj 1,000 ML IV.CONT SCH ×2 (08:49→17:30)
[2018-02-23] MEDS: Morphine Inj 4 MG/ML Vial IV.PUSH PRN ×2 (09:23→17:27)
--- NOTE | 2018-02-23 09:40 | P.PNIM ---
Subjective Interval history: Follow-up visit acute cholecystitis. Patient seen and examined today. Reports he is doing well. States that he needs to get another morphine medication as his abdominal pain is increasing. Awaiting for nurse to provide the medication. Otherwise, states he is ready for his surgery at 2:30 PM. Denies pain and discomfort. Denies SOB/ dyspnea. Denies chest pain, palpitations, headaches, dizziness. Denies fevers, chills, n/v/d. Denies hematuria, dysuria. Physical Exam Vital signs: Vital Signs 02/22/18 09:56 02/22/18 16:00 02/22/18 17:38 Temperature 97.4 F L 99.5 F Pulse Rate 75 57 L Respiratory Rate 17 17 18 Blood Pressure 138/75 166/77 H Pulse Oximetry 96 98 02/22/18 20:00 02/22/18 22:01 02/23/18 00:00 Temperature 98.7 F 97.5 F L Pulse Rate 58 L 58 L Respiratory Rate 18 18 16 Blood Pressure 155/65 H 177/79 H Pulse Oximetry 98 97 Intake & Output 02/22/18 02/23/18 02/23/18 18:59 06:59 18:59 Intake Total 2220 / 2220 25 / 25 1000 / 1000 Balance 2220 / 2220 25 / 25 1000 / 1000 Weight 74.389 kg 74.7 kg Intake: IV 1600 / 1600 1000 / 1000 NS Inj 1,000 ML @ 100 mls/hr IV 1000 / 1000 .CONT .Q10H ANA Rx#:[id number] NS Inj 1,000 ML @ Wide Open IV. 1000 / 1000 SIG BOLUS ONE Rx#:[id number] NS Inj 500 ML @ Wide Open IV. 500 / 500 SIG BOLUS ONE Rx#:[id number] Rocephin Inj 2,000 MG In NS Inj 100 / 100 100 ML @ 200 mls/hr IV.SIG Q24H ANA Rx#:[id number] Oral 620 / 620 / Other: # Voids 1 4 Narrative: GENERAL: This is a pleasant, well-developed patient, in no apparent distress. SKIN: Warm and dry. HEENT: Normocephalic. Pupils equal round and reactive. Nose without bleeding. Airway patent. NECK: Trachea midline. CARDIOVASCULAR: Regular rate and rhythm without murmurs, gallops, or rubs. RESPIRATORY: Clear to auscultation. Breath sounds equal bilaterally. No wheezes , rales, or rhonchi. GASTROINTESTINAL: Abdomen soft, nondistended. Bowel Sounds normoactive. Mild tenderness to palpation MUSCULOSKELETAL: Extremities without clubbing, cyanosis, or edema. NEUROLOGICAL: Awake and alert. No focal neuro deficit. Moves all extremities. Normal speech. Results - Labs CBC & Chem 7: 02/22/18 10:50 02/22/18 10:50 Laboratory Results - last 24 hr 02/22/18 02/22/18 02/22/18 10:50 10:50 10:50 WBC 8.3 RBC 4.74 Hgb 13.6 Hct 39.0 MCV 82.2 MCH 28.6 MCHC 34.8 RDW 13.7 Plt Count 218 MPV 9.3 Neut % (Auto) 48.9 Lymph % (Auto) 39.1 [place] % (Auto) 9.6 H Eos % (Auto) 1.9 Baso % (Auto) 0.5 Neut # (Auto) 4.0 Lymph # (Auto) 3.2 [place] # (Auto) 0.8 Eos # (Auto) 0.2 Baso # (Auto) 0.0 WBC Differential . Differential Comment Auto diff final Sodium 129 L Potassium 4.1 Chloride 96 L Carbon Dioxide 24.6 Anion Gap 8 BUN 13 Creatinine 1.49 H Estimated GFR 45 L Random Glucose 102 Calcium 8.6 Magnesium 2.1 Total Bilirubin 1.0 AST 23 ALT 27 Alkaline Phosphatase 94 Total Protein 7.3 Albumin 3.8 Lipase 116 Urine Color Urine Clarity Urine pH Ur Specific [place] Urine Protein Urine Glucose (UA) Urine Ketones Urine Occult Blood Urine Nitrate Urine Bilirubin Urine Urobilinogen Ur Leukocyte Esterase Urine RBC Urine WBC Micro UA Comment Ur Microscopic Review Urine Culture Comments Blood Type O Positive Blood Type Recheck Required Antibody Screen Negative 02/22/18 12:19 WBC RBC Hgb Hct MCV MCH MCHC RDW Plt Count MPV Neut % (Auto) Lymph % (Auto) [place] % (Auto) Eos % (Auto) Baso % (Auto) Neut # (Auto) Lymph # (Auto) [place] # (Auto) Eos # (Auto) Baso # (Auto) WBC Differential Differential Comment Sodium Potassium Chloride Carbon Dioxide Anion Gap BUN Creatinine Estimated GFR Random Glucose Calcium Magnesium Total Bilirubin AST ALT Alkaline Phosphatase Total Protein Albumin Lipase Urine Color Yellow Urine Clarity Clear Urine pH 6.0 Ur Specific [place] 1.006 Urine Protein Negative Urine Glucose (UA) Negative Urine Ketones Trace H Urine Occult Blood Negative Urine Nitrate Negative Urine Bilirubin Negative Urine Urobilinogen Less than 2 Ur Leukocyte Esterase Negative Urine RBC Less than 1 Urine WBC 1 Micro UA Comment Culture not ind Ur Microscopic Review Not Reportable Urine Culture Comments Culture not ind Blood Type Blood Type Recheck Antibody Screen - Imaging Impressions Gallbladder Ultrasound 02/22/18 10:22 CONCLUSION: 1. The gallbladder is contracted containing multiple stones. However, there are no findings to suggest gallbladder obstruction or inflammation. 2. Remainder of the examination demonstrates no definite abnormality. Assessment and Plan - Plan Mr. Richmond is a pleasant 82-year-old male with a history of hypertension, CKD stage III who presents to the emergency department on 02/22/2018 due to abdominal pain that started in November 2017. His abdominal pain is worse with eating. Imaging studies indicate gallbladder stones. Patient did try to undergo HIDA scan in the outpatient setting but could not tolerate due to pain. Acute symptomatic cholecystitis General surgery consulted. Surgery today, 02/23/2018. Acetaminophen, morphine IV for pain management. Continue ceftriaxone 2 g every 24 hours. No antibiotics after surgery. NPO for now Hypertension Continue amlodipine, losartan -Monitor BP trend CKD stage III Creatinine 1.49 today which is somewhat better than his baseline. -Estimated GFR 45. Full code. SCDs. Discussed Condition With: Patient, , nursing Discharge Planning: Plan to discharge home when clinically improved, post surgery. Pending surgery today.
[2018-02-23] MEDS ORDERED: Bupivacaine/Epinephrine Inj 0.25% 50 ML Vial ONE (13:41)
[2018-02-23] MEDS ORDERED: fentaNYL Citrate Inj 250 MCG/5 ML Ampul ONE (13:43)
--- NOTE | 2018-02-23 13:54 | ECG ---
Date Performed: 02/22/2018 Time Performed: 11:40:25 PTAGE: 82 years EKG: SINUS BRADYCARDIA ST DEVIATION AND MODERATE T-WAVE ABNORMALITY, CONSIDER LATERAL ISCHEMIA A BNORMAL ECG SINCE PRIOR TRACING PREVOULSY SEEN ANTERIOR ST AND T WAVE CHANGES ARE SOMEWHAT LESS PROMI AG PREVIOUS TRACING : 04/03/2015 20.28 DOCTOR: Manuel Resendez Interpretating Date/Time 02/23/2018 13:53:15
--- NOTE | 2018-02-23 16:10 | P.OP ---
- Preoperative Diagnosis (1) Symptomatic cholelithiasis - Postoperative Diagnosis (1) Symptomatic cholelithiasis Date of procedure: 02/23/18 Procedure: Laparoscopic cholecystectomy Anesthesia: KATHY Surgeon: Tolu Noguera MD [employer] Officer: Thais Alcantar CFA Estimated blood loss (mL): 30 IV fluids (mL): 750 Pathology: other (Gallbladder and contents to pathology) Operation and Findings: Patient was taken to the operating room and placed on the operating table in supine position. After an adequate level of general endotracheal anesthesia was achieved the abdomen was prepped and draped in the usual fashion. Time-out was taken, confirming the correct patient, site, and procedure to be performed. Skin and subcutaneous tissue was infiltrated with local anesthetic and an incision made in the umbilicus and carried through the fascia sharply. The peritoneal cavity was directly visualized. A 12 mm balloon trocar was inserted and the balloon inflated. The abdomen was insufflated. The patient was placed in reverse Trendelenburg position. 3 5 mm trocars were then placed, with the first to the right of the falciform ligament and second and third in the right subcostal region. All entered the abdominal cavity under direct vision uneventfully. Fundus of the gallbladder was retracted upward and was seen to be quite inflamed. The cystic duct infundibular junction and cystic artery were both circumferentially dissected. The artery was doubly clipped proximally singly clipped on the gallbladder side and divided. The cystic duct was doubly clipped distally, singly clipped on the gallbladder side and divided. The gallbladder was then dissected off of the liver bed with electrodissection. The gallbladder was then placed into an Endo Catch device and removed via the umbilical port while observing via the upper 5 mm trocar site. The upper abdomen was revisualized via the umbilical port site. The liver bed was made hemostatic on one small bleeding point utilizing electrocautery. The cystic artery stump and cystic duct stump were both seen to be clean and dry. Careful examination of the rest the abdominal cavity revealed no other pathology readily apparent by visualization. At this point, insufflation was discontinued and the upper abdominal trocars were removed under direct vision. No bleeding was noted from the trocar sites during desufflation. The laparoscope and umbilical port were removed. The umbilical fascia was closed with 0 Vicryl suture in both a [id number] and simple interrupted fashion. The skin was closed at each of the trocar sites with 4-0 Vicryl in interrupted buried fashion. All sites were dressed with Steri-Strips. Sponge and needle counts were reported to be correct. The patient was extubated and taken back to the recovery room in stable condition. He tolerated the procedure well.
[2018-02-24] MEDS: Sod Chloride 0.9% Inj 1,000 ML IV.CONT SCH ×2 (01:17→12:54)
[2018-02-24 03:01] LABS: Bilirubin,Urine Negative (Negative); Clarity,Urine Clear (Clear); Color,Urine Yellow (Yellw/Straw); Glucose,Urine (UA) Negative (Negative); Leukocyte Esterase,Urine Negative (Negative); Mucus,Urine Few /lpf (Occasional); Nitrite,Urine Negative (Negative); Specific Gravity,Urine 1.016 (1.002-1.035)
[2018-02-24 06:52] LABS: Hematocrit 38.2 % (39.0-51.0); Hemoglobin 12.8 gm/dL (13.0-17.0); Mean Corpuscular HGB Conc 33.6 % (32.0-36.0); Mean Corpuscular Hemoglobin 28.1 pg (27.0-34.0); Mean Corpuscular Volume 83.8 fL (80.0-100.0); Mean Platelet Volume 9.7 fL (7.0-11.0); Platelet Count 202 th/mm3 (150-450); Red Blood Count 4.56 mil/mm3 (4.50-5.90); Red Cell Distribution Width 13.9 % (11.6-17.2); White Blood Count 9.3 th/mm3 (4.0-11.0)
[2018-02-24 07:24] LABS: Calcium 8.1 mg/dL (8.5-10.1); Carbon Dioxide 23.8 meq/L (21.0-32.0); Potassium 4.2 meq/L (3.5-5.1)
[2018-02-24] MEDS: amLODIPine 5 MG Tablet PO SCH (09:06)
--- NOTE | 2018-02-24 09:38 | P.PNGS ---
Subjective Patient reports: no new complaints, feels better Physical Exam Vital signs: Vital Signs 02/23/18 09:45 02/23/18 12:00 02/23/18 16:11 Temperature 98.2 F 97.4 F L Pulse Rate 54 L 84 Respiratory Rate 16 17 22 Blood Pressure 156/68 H 145/67 H Pulse Oximetry 98 100 02/23/18 16:15 02/23/18 16:30 02/23/18 16:45 Temperature 97.8 F Pulse Rate 74 70 74 Respiratory Rate 11 L 12 19 Blood Pressure 147/66 H 142/67 H 146/66 H Pulse Oximetry 100 96 98 02/23/18 17:29 02/23/18 20:00 02/24/18 00:00 Temperature 97 F L 97.7 F 97.5 F L Pulse Rate 57 L 56 L 53 L Respiratory Rate 18 18 16 Blood Pressure 149/64 H 156/69 H 126/62 Pulse Oximetry 95 97 98 02/24/18 04:00 Temperature 97.8 F Pulse Rate 55 L Respiratory Rate 18 Blood Pressure 154/69 H Pulse Oximetry 98 Intake & Output 02/23/18 02/24/18 02/24/18 18:59 06:59 18:59 Intake Total 2750 / 2750 1000 / 1000 Output Total 1530 / 1530 900 / 900 Balance 1220 / 1220 100 / 100 Weight 75.2 kg Intake: IV 2000 / 1999 1000 / 1000 NS Inj 1,000 ML @ 100 mls/hr IV 2000 / 2000 1000 / 1000 .CONT .Q10H [facility] Rx#:[id number] Anesthesia Amount 750 / 750 Output: Urine 1500 / 1500 Estimated Blood Loss 30 / 30 Urine Amount (Catheter) 900 / 900 Indwelling Urethral Catheter 900 / 900 - Routine Abdominal Exam Present: soft (incisional tenderness, c/d/i) - Urinary Catheter Management Indwelling Urethral Catheter Cath placed during this visit: yes Reason for continuing: Acute urinary retention Insertion date: 02/24/18 Insertion time: 02:15 Results - Labs 02/24/18 05:47 02/24/18 05:47 Laboratory Results - last 24 hr 02/24/18 02/24/18 02/24/18 02:43 05:47 05:47 WBC 9.3 RBC 4.56 Hgb 12.8 L Hct 38.2 L MCV 83.8 MCH 28.1 MCHC 33.6 RDW 13.9 Plt Count 202 MPV 9.7 Sodium 136 Potassium 4.2 Chloride 104 D Carbon Dioxide 23.8 Anion Gap 8 BUN 15 Creatinine 1.60 H Estimated GFR 42 L Random Glucose 112 H Calcium 8.1 L Urine Color Yellow Urine Clarity Clear Urine pH 5.0 Ur Specific [place] 1.016 Urine Protein Negative Urine Glucose (UA) Negative Urine Ketones 20 Urine Occult Blood Negative Urine Nitrate Negative Urine Bilirubin Negative Urine Urobilinogen Less than 2 Ur Leukocyte Esterase Negative Urine RBC 1 Urine WBC 1 Urine Mucus Few H Micro UA Comment Cath-culture not ind Ur Microscopic Review Not Reportable Urine Culture Comments Cath-cult not ind - Imaging Imaging: ITS Impressions Gallbladder Ultrasound 02/22/18 10:22 CONCLUSION: 1. The gallbladder is contracted containing multiple stones. However, there are no findings to suggest gallbladder obstruction or inflammation. 2. Remainder of the examination demonstrates no definite abnormality. Assessment and Plan - Assessment (1) Symptomatic cholelithiasis Code(s): K80.20 - Calculus of gallbladder without cholecystitis without obstruction Status: Acute Plan: 82 year old male with symptomatic cholelithiasis s/p lap oz PLAN cardio diet remove [place], if able to void then dc planning po pain control wean ivf oob
--- NOTE | 2018-02-24 11:52 | P.PNIM ---
Subjective Interval history: Follow-up visit acute cholecystitis status post lap cholecystectomy. Patient seen and examined today. at the bedside. Patient states he is doing well. States he is still sore in his abdomen. States he has been walking around and able to pass gas. Voided 100 cc only post Hines catheterization removal. Otherwise, denies SOB/ dyspnea. Denies chest pain, palpitations, headaches, dizziness. Denies fevers, chills, n/v/d. Denies dysuria. Physical Exam Vital signs: Vital Signs 02/23/18 12:00 02/23/18 16:11 02/23/18 16:15 Temperature 98.2 F 97.4 F L Pulse Rate 54 L 84 74 Respiratory Rate 17 22 11 L Blood Pressure 156/68 H 145/67 H 147/66 H Pulse Oximetry 98 100 100 02/23/18 16:30 02/23/18 16:45 02/23/18 17:29 Temperature 97.8 F 97 F L Pulse Rate 70 74 57 L Respiratory Rate 12 19 18 Blood Pressure 142/67 H 146/66 H 149/64 H Pulse Oximetry 96 98 95 02/23/18 20:00 02/24/18 00:00 02/24/18 04:00 Temperature 97.7 F 97.5 F L 97.8 F Pulse Rate 56 L 53 L 55 L Respiratory Rate 18 16 18 Blood Pressure 156/69 H 126/62 154/69 H Pulse Oximetry 97 98 98 Intake & Output 02/23/18 02/24/18 02/24/18 18:59 06:59 18:59 Intake Total 2750 / 2750 1000 / 1000 980 / 980 Output Total 1530 / 1530 900 / 900 Balance 1220 / 1220 100 / 100 980 / 980 Weight 75.2 kg Intake: IV 1999 1000 / 1000 980 / 980 NS Inj 1,000 ML @ 100 mls/hr IV 1999 / 1999 1000 / 1000 980 / 980 .CONT .Q10H [facility] Rx#:[id number] Anesthesia Amount 750 / 750 Output: Urine 1500 / 1500 Estimated Blood Loss 30 / 30 Urine Amount (Catheter) 900 / 900 Indwelling Urethral Catheter 900 / 900 Narrative: GENERAL: This is a well-nourished, well-developed patient, in no apparent distress. SKIN: Warm and dry. HEENT: Normocephalic. Pupils equal round and reactive. Nose without bleeding. Airway patent. NECK: Trachea midline. CARDIOVASCULAR: Regular rate and rhythm without murmurs, gallops, or rubs. RESPIRATORY: Clear to auscultation. Breath sounds equal bilaterally. No wheezes , rales, or rhonchi. GASTROINTESTINAL: Abdomen soft, nondistended. Bowel Sounds hypoactive. Lap sites with Steri-Strips clean dry and intact. MUSCULOSKELETAL: Extremities without clubbing, cyanosis, or edema. NEUROLOGICAL: Awake and alert. Oriented to time, place, person. No focal neuro deficit. Moves all extremities. Normal speech. - Urinary Catheter Management Indwelling Urethral Catheter Cath placed during this visit: yes Reason for continuing: Acute urinary retention Insertion date: 02/24/18 Insertion time: 02:15 Results - Labs CBC & Chem 7: 02/24/18 05:47 02/24/18 05:47 Laboratory Results - last 24 hr 02/24/18 02/24/18 02/24/18 02:43 05:47 05:47 WBC 9.3 RBC 4.56 Hgb 12.8 L Hct 38.2 L MCV 83.8 MCH 28.1 MCHC 33.6 RDW 13.9 Plt Count 202 MPV 9.7 Sodium 136 Potassium 4.2 Chloride 104 D Carbon Dioxide 23.8 Anion Gap 8 BUN 15 Creatinine 1.60 H Estimated GFR 42 L Random Glucose 112 H Calcium 8.1 L Urine Color Yellow Urine Clarity Clear Urine pH 5.0 Ur Specific [place] 1.016 Urine Protein Negative Urine Glucose (UA) Negative Urine Ketones 20 Urine Occult Blood Negative Urine Nitrate Negative Urine Bilirubin Negative Urine Urobilinogen Less than 2 Ur Leukocyte Esterase Negative Urine RBC 1 Urine WBC 1 Urine Mucus Few H Micro UA Comment Cath-culture not ind Ur Microscopic Review Not Reportable Urine Culture Comments Cath-cult not ind Assessment and Plan - Plan Mr. Richmond is a pleasant 82-year-old male with a history of hypertension, CKD stage III who presents to the emergency department on 02/22/2018 due to abdominal pain that started in November 2017. His abdominal pain is worse with eating. Imaging studies indicate gallbladder stones. Patient did try to undergo HIDA scan in the outpatient setting but could not tolerate due to pain. That is post laparoscopic cholecystectomy Acute symptomatic cholecystitis General surgery following the patient Acetaminophen, morphine IV for pain management. Ceftriaxone 2 g every 24 hours. No antibiotics after surgery. Advance diet as tolerated. Patient already passing flatus -Hines catheter has been removed able to void 100 mL's. 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 SCDs. Discussed Condition With: Patient, nursing, Discharge Planning: Plan to discharge home when able to tolerate diet, able to void.
--- NOTE | 2018-02-24 14:11 | P.DS ---
Date of admission: 02/22/18 12:39 Primary care physician: Issa Navarrete MD Attending physician on discharge: Matt Negro Anticipated date of discharge: 02/24/18 Brief History from admission: Mr. Richmond is a pleasant 82-year-old male with a history of hypertension who presents to the emergency department on 02/22/2018 due to right-sided abdominal pain. In November 2017, patient was driving back to [place] from [place] when he started noticing right-sided abdominal pain. Over the following months, his abdominal pain Getting worse and also associated with food intake. He did not have any fever or chills. However, due to abdominal pain when he eats, he has lost 10 lbs or so. He denies any chest pain, shortness of breath, fever or chills. He denies any changes in bowel or bladder habits. Past medical history: Chronic kidney disease stage III, hypertension Past surgical history: Mastoid surgery when he was 6 years old. Nasal polyp surgery. Social history: Lifelong non-smoker and nondrinker. Family history: Mother had dementia. Patient update on day of discharge: Follow-up visit acute cholecystitis status post lap cholecystectomy. Patient seen and examined today. at the bedside. Patient states he is doing well. States he is still sore in his abdomen. States he has been walking around and able to pass gas. Voided 100 cc only post Hines catheterization removal. Otherwise, denies SOB/ dyspnea. Denies chest pain, palpitations, headaches, dizziness. Denies fevers, chills, n/v/d. Denies dysuria. DS: Diagnosis - Discharge Diagnosis (1) Acute dehydration Status: Acute (2) Cholelithiasis Status: Acute (3) Symptomatic cholelithiasis Status: Acute DS: Medications - Discharge Medications Prescriptions: hydrocodone-acetaminophen [[place]] 1 tab PO Q4H PRN #25 tab PRN Reason: Acute Pain Exception DS: Summary Hospital Course: Mr. Richmond is a pleasant 82-year-old male with a history of hypertension, CKD stage III who presents to the emergency department on 02/22/2018 due to abdominal pain that started in November 2017. His abdominal pain is worse with eating. Imaging studies indicate gallbladder stones. Patient did try to undergo HIDA scan in the outpatient setting but could not tolerate due to pain. Patient with acute symptomatic cholecystitis with cholelithiasis. He is status post laparoscopic cholecystectomy 02/23/18. General surgery has been following the patient during hospitalization. Patient was placed on Ceftriaxone prior to surgery. Hines catheter has been removed post surgery. He started voiding. Chronic conditions such as hypertension, patient has continued to take his home medications. He has chronic kidney disease stage III , he has IV fluids for hydration. His creatinine is near baseline. Wound care has been discussed with patient and . Patient able to ambulate and tolerating diet. Patient has met maximal benefits of hospitalization. Clinically stable for discharge. Labs ordered by Dr. Noguera, f/u in the outpatient - Time Spent with Patient Total time spent providing and/or coordinating discharge services: Less than 30 minutes - Quality: VTE Deep Vein Thrombosis/Pulmonary Embolism Present on Admission: No Exam Vital signs: Vital Signs 02/23/18 16:11 02/23/18 16:15 02/23/18 16:30 Temperature 97.4 F L 97.8 F Pulse Rate 84 74 70 Respiratory Rate 22 11 L 12 Blood Pressure 145/67 H 147/66 H 142/67 H Pulse Oximetry 100 100 96 02/23/18 16:45 02/23/18 17:29 02/23/18 20:00 Temperature 97 F L 97.7 F Pulse Rate 74 57 L 56 L Respiratory Rate 19 18 18 Blood Pressure 146/66 H 149/64 H 156/69 H Pulse Oximetry 98 95 97 02/24/18 00:00 02/24/18 04:00 02/24/18 12:00 Temperature 97.5 F L 97.8 F 98.3 F Pulse Rate 53 L 55 L 62 Respiratory Rate 16 18 18 Blood Pressure 126/62 154/69 H 150/66 H Pulse Oximetry 98 98 97 Intake & Output 02/23/18 02/24/18 02/24/18 18:59 06:59 18:59 Intake Total 2850 / 2850 1000 / 1000 1979 Output Total 1530 / 1530 900 / 900 Balance 1320 / 1320 100 / 100 1979 Weight 75.2 kg Intake: IV 2100 / 2099 1000 / 1000 1979 NS Inj 1,000 ML @ 100 mls/hr IV 2000 / 1999 1000 / 1000 1979 .CONT .Q10H [facility] Rx#:[id number] Rocephin Inj 2,000 MG In NS Inj 100 / 100 100 ML @ 200 mls/hr IV.SIG Q24H [facility] Rx#:[id number] Anesthesia Amount 750 / 750 Output: Urine 1500 / 1500 Estimated Blood Loss 30 / 30 Urine Amount (Catheter) 900 / 900 Indwelling Urethral Catheter 900 / 900 Narrative: GENERAL: This is a well-nourished, well-developed patient, in no apparent distress. SKIN: Warm and dry. HEENT: Normocephalic. Pupils equal round and reactive. Nose without bleeding. Airway patent. NECK: Trachea midline. CARDIOVASCULAR: Regular rate and rhythm without murmurs, gallops, or rubs. RESPIRATORY: Clear to auscultation. Breath sounds equal bilaterally. No wheezes , rales, or rhonchi. GASTROINTESTINAL: Abdomen soft, nondistended. Bowel Sounds hypoactive. Lap sites with Steri-Strips clean dry and intact. MUSCULOSKELETAL: Extremities without clubbing, cyanosis, or edema. NEUROLOGICAL: Awake and alert. Oriented to time, place, person. No focal neuro deficit. Moves all extremities. Normal speech. Results Procedures completed during hospitalization: Status post laparoscopic cholecystectomy 02/23/18 Pending studies at discharge: Pending at discharge 02/23/18 Surgical [PTH] Routine Labs on day of discharge: Labs from last 24 hours 02/24/18 02/24/18 02/24/18 05:47 05:47 02:43 WBC 9.3 RBC 4.56 Hgb 12.8 L Hct 38.2 L MCV 83.8 MCH 28.1 MCHC 33.6 RDW 13.9 Plt Count 202 MPV 9.7 Sodium 136 Potassium 4.2 Chloride 104 D Carbon Dioxide 23.8 Anion Gap 8 BUN 15 Creatinine 1.60 H Estimated GFR 42 L Random Glucose 112 H Calcium 8.1 L Urine Color Yellow Urine Clarity Clear Urine pH 5.0 Ur Specific [place] 1.016 Urine Protein Negative Urine Glucose (UA) Negative Urine Ketones 20 Urine Occult Blood Negative Urine Nitrate Negative Urine Bilirubin Negative Urine Urobilinogen Less than 2 Ur Leukocyte Esterase Negative Urine RBC 1 Urine WBC 1 Urine Mucus Few H Micro UA Comment Cath-culture not ind Ur Microscopic Review Not Reportable Urine Culture Comments Cath-cult not ind - Impressions ITS Impressions Gallbladder Ultrasound 02/22/18 10:22 CONCLUSION: 1. The gallbladder is contracted containing multiple stones. However, there are no findings to suggest gallbladder obstruction or inflammation. 2. Remainder of the examination demonstrates no definite abnormality. Discharge Plan - Discharge Disposition Patient Disposition: 01 Discharge Home - Discharge Condition Condition: Stable - Discharge Order Discharge Orders: Discharge Order (Routine); Ordered 02/24/18 Ordered By: Max Ortez - Physicians Team Primary Care Provider: Issa Navarrete Attending Provider: Matt Negro Other Providers: Tolu Noguera MD
[2018-02-24 16:23] VITALS: BP 135/60; PULSE 60; RESP 17; TEMP 98.5; O2SAT 96
== END 2018-02-24 18:25 | disposition home or self-care (01) ==
LOC: NEPE 09:47 → INTOOBSV 12:39 → NEDA 12:39 → N07 14:56
PROVIDERS: ADMIT Hospitalist; ATTEND Hospitalist
CPT/HCPCS: 51798; 76705; 76775; 80048; 80053; 81001; 82378; 83690; 83735; 84153; 84154; 85025; 85027; 86301; 86850; 86900; 86901; 88304; 90761; 90775; 93005; 96361; 96365; 96366; 96375; 96376; 99285; G0378; J0131; J0696; J2270; J2405; J3010; J7030; J7040; J7120